=== PATIENT | female | born 1975 | race Two or more races ===

== ENCOUNTER 2021-11-14 17:42 | Emergency (ER) | payer OTHER ==
[~2021-11-14] VITALS: Ht 170.2 cm; Wt 136.1 kg
[2021-11-14] MEDS ORDERED: CLIPIZIDE (18:02)
[2021-11-14] MEDS ORDERED: DEPAKOTE (18:02)
[2021-11-14] MEDS ORDERED: METFORMIN (18:03)
== END 2021-11-14 19:29 | disposition home or self-care (01) ==
LOC: ER 17:42
DX: F25.9 Schizoaffective disorder, unspecified (principal); Z88.6 Allergy status to analgesic agent